=== PATIENT | female | born 1960 | race Caucasian/White ===

== ENCOUNTER 2017-08-26 19:51 | Emergency (ER) | payer BC ==
[2017-08-26] MEDS ORDERED: oxyCODONE/Acetamin 5/325 MG* TAB PO ONE (22:49)
[2017-08-26] MEDS ORDERED: Ofloxacin 0.3% OTIC.SOL* 5 ML BTL RIGHT EAR SCH (23:00)
[2017-08-27] MEDS ORDERED: Ciproflox/Dexameth OTIC.SUSP* 7.5 ML BTL ONE (03:00)
[2017-08-27 04:25] VITALS: BP 139/86
--- NOTE | 2017-08-27 05:56 | ED ---
Bobby Lopez Thomas, scribed for Dasha Calzada MD on 08/26/17 at 2330 . Throat Pain/Nasal Congestion - HPI Summary HPI Summary: The patient is a 57 year old female presenting with ear pain that has been persistent for the last two months. The pain is rated 8/10. The ear pain is now giving her a headache. She has not been taking any medication for the pain. She denies fever. There have been difficulties with her following up her family doctor and an ENT. - History of Current Complaint Chief Complaint: EDHeadache Time Seen by Provider: 08/26/17 22:29 Hx Obtained From: Patient Onset/Duration: Lasting Weeks - 2 months, Still Present Severity: Moderate Associated Signs And Symptoms: Positive: Negative - fever Cough: None Related History: Other (Noted In Comments) - Difficulty following up with ENT and family doc - Allergies/Home Medications Allergies/Adverse Reactions: Allergies Allergy/AdvReac Type Severity Reaction Status Date / Time carbamazepine [From Tegretol] Allergy Rash Verified 08/26/17 19:58 gabapentin [From Neurontin] Allergy See Comment Verified 08/26/17 19:58 lamotrigine [From Lamictal] Allergy Rash Verified 08/26/17 19:58 oxcarbazepine Allergy Rash Verified 08/26/17 19:58 [From Trileptal] PMH/Surg Hx/FS Hx/Imm Hx Cardiovascular History: Denies: Hx Pacemaker/ICD Sensory History: Denies: Hx Hearing Aid Neurological History: Reports: Other Neuro Impairments/Disorders - Hx epilepsy Psychiatric History: Denies: Hx Panic Disorder - Cancer History Hx Chemotherapy: No Hx Radiation Therapy: No - Surgical History Surgery Procedure, Year, and Place: 1989 VIDEO EEG OF BRAIN. 1992 RT CRANIOTOMY WITH TEMPORAL LOBECTOMY. 1984 TUBAL LIGATION Infectious Disease History: No Infectious Disease History: Denies: Traveled Outside the [place] in Last 30 Days - Family History Known Family History: Negative: Blood Disorder - Social History Alcohol Use: None Substance Use Type: Reports: None Smoking Status (MU): Former Smoker Review of Systems Negative: Fever Positive: Ear Ache Positive: Headache All Other Systems Reviewed And Are Negative: Yes Physical Exam - Summary Physical Exam Summary: VITAL SIGNS: Reviewed. GENERAL: Patient is a well-developed and nourished female who is lying comfortable in the stretcher. Patient is not in any acute respiratory distress. HEAD AND FACE: No signs of trauma. She is tender to her right mastoid. She has pain with right auricular movement. No ecchymosis, hematomas or skull depressions. No sinus tenderness. EYES: PERRLA, EOMI x 2, No injected conjunctiva, no nystagmus. EARS: She has right tragal tenderness. She has tenderness with right auricle movement. She has edema of the external auditory canal with tenderness. MOUTH: Oropharynx within normal limits. NECK: Supple, trachea is midline, no adenopathy, no JVD, no carotid bruit, no c- spine tenderness, neck with full ROM. CHEST: Symmetric, no tenderness at palpation LUNGS: Clear to auscultation bilaterally. No wheezing or crackles. CVS: Regular rate and rhythm, S1 and S2 present, no murmurs or gallops appreciated. ABDOMEN: Soft, non-tender. No signs of distention. No rebound no guarding, and no masses palpated. Bowel sounds are normal. EXTREMITIES: FROM in all major joints, no edema, no cyanosis or clubbing. NEURO: Alert and oriented x 3. No acute neurological deficits. Speech is normal and follows commands. SKIN: Dry and warm Triage Information Reviewed: Yes Vital Signs On Initial Exam: Initial Vitals Temp Pulse Resp BP Pulse Ox 97.8 F 99 16 128/84 98 08/26/17 19:53 08/26/17 19:53 08/26/17 19:53 08/26/17 19:53 08/26/17 19:53 Vital Signs Reviewed: Yes Procedures - Procedure Summary Procedure Summary: WICK INSERTION PROCEDURE NOTE: I inserted an air wick into the right external auditory canal. Diagnostics - Vital Signs Vital Signs Temp Pulse Resp BP Pulse Ox 08/26/17 23:04 16 08/26/17 19:53 97.8 F 99 16 128/84 98 - Laboratory Lab Statement: Any lab studies that have been ordered have been reviewed, and results considered in the medical decision making process. - CT CT Temporal Bones CT Interpretation: Positive (See Comments) - Impression: There is abnormal expansive soft tissue in the right external ear canal. It is eroding the bony margins of the right external ear. Uncertain if this is an inflammatory mass and disease (in which case malignant external otitis is possible) polyp or neoplasm. It obstructs the external ear canal and impresses on the tympanic membrane. The right middle and internal ear canals are normal. Right mastoid air cells are well aerated with no bone breakdown. There is also heterogeneous material in the left external ear canal but it is nonobstructing and not eroding bone at this point. Left middle and internal ear canals are normal the left mastoid air cells are well aerated. Patient status post right temporal craniotomy. Underlying right temporal encephalomalacia. Dr. Calzada has reviewed this report. CT Interpretation Completed By: Radiologist EENT Course/Dx - Course Assessment/Plan: The patient is a 57 year old female presenting with ear pain that has been persistent for the last two months. The patient was given Percocet and Ofloxacin. I inserted an air wick. A CT temporal bones shows There is abnormal expansive soft tissue in the right external ear canal. It is eroding the bony margins of the right external ear. Uncertain if this is an inflammatory mass and disease (in which case malignant external otitis is possible) polyp or neoplasm. It obstructs the external ear canal and impresses on the tympanic membrane. The right middle and internal ear canals are normal. Right mastoid air cells are well aerated with no bone breakdown. There is also heterogeneous material in the left external ear canal but it is nonobstructing and not eroding bone at this point. Left middle and internal ear canals are normal the left mastoid air cells are well aerated. Patient status post right temporal craniotomy. Underlying right temporal encephalomalacia. The patient could have a severe otitis externa versus malignant tumor within the external auditory canal. The patient was instructed to apply Cirpodex ear drops four drops to her right eye twice a day. She was strongly urged to call ENT tomorrow. 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 - Diagnoses Provider Diagnoses: Right otitis externa Discharge - Sign-Out/Discharge Documenting (check all that apply): Discharge - Discharge Plan Condition: Stable Disposition: HOME Prescriptions: oxyCODONE/Acetamin 5/325 MG* [Percocet 5/325 TAB*] 1 tab PO Q6H PRN #14 tab MDD 4 PRN Reason: Pain Patient Education Materials: Otitis Externa (ED) Referrals: Casey Velez MD [Medical Doctor] - As Soon As Possible Additional Instructions: I strongly urge you to call the office of Dr. Velez, ENT, in the morning to schedule an appointment as soon as possible. When you call the office, you need to tell the weekend receptionist that you were seen at the emergency department and that you need an appointment soon. Apply four drops of the provided Ciprodex drops to your right ear twice a day. Return to the emergency department for any new or worsening symptoms. The documentation as recorded by the Bobby sethi Thomas accurately reflects the service I personally performed and the decisions made by me, Dasha Calzada MD.
--- NOTE | 2017-08-27 08:04 | RAD ---
HISTORY: Right mastoiditis COMPARISONS: Head CT dated January 28, 2006 TECHNIQUE: Multiple contiguous axial CT scans of the temporal bones were obtained without intravenous contrast, with coronal and sagittal multiplanar reformations. FINDINGS: RIGHT: EXTERNAL CANAL: There is a soft tissue defect occupying the osseous portion of the right external canal to the level of the tympanic membrane. This measures approximately 1.5 x 1 x 1.3 cm in size. There is expansion and remodeling of the external canal, without appreciable erosion. TYMPANIC MEMBRANE: The tympanic membrane is not well visualized secondary to the mass of the external canal. OSSICLES: Normal. No erosion. WINDOWS: Normal. No narrowing. MIDDLE EAR: Normal. No abnormal soft tissue or fluid. The scutum is sharp. Prussak's space is clear. MASTOID: Normal. No fluid, sclerosis, or soft tissue abnormality. INNER EAR: Normal. FACIAL CANAL: Normal. No dehiscence. IAC: Normal. No expansion or asymmetry. JUGULAR FORAMEN: Normal. No expansion or erosion. CAROTID CANAL: Normal. No erosion LEFT: EXTERNAL CANAL: There is cerumen noted within the left external canal TYMPANIC MEMBRANE: Normal. No thickening or retraction. OSSICLES: Normal. No erosion. WINDOWS: Normal. No narrowing. MIDDLE EAR: Normal. No abnormal soft tissue or fluid. The scutum is sharp. Prussak's space is clear. MASTOID: Normal. No fluid, sclerosis, or soft tissue abnormality. INNER EAR: Normal. FACIAL CANAL: Normal. No dehiscence. IAC: Normal. No expansion or asymmetry. JUGULAR FORAMEN: Normal. No expansion or erosion. CAROTID CANAL: Normal. No erosion ADDITIONAL FINDINGS: The patient is status post right temporal craniotomy. There is right temporal encephalomalacia IMPRESSION: 1. THERE IS AN EXPANSILE SOFT TISSUE MASS OF THE RIGHT EXTERNAL CANAL, REMODELING THE EXTERNAL CANAL, WITHOUT APPRECIABLE EROSION, OF UNCERTAIN ETIOLOGY, THOUGH EXTERNAL CANAL NEOPLASM IS WITHIN THE DIFFERENTIAL. RECOMMEND CORRELATION WITH DIRECT VISUALIZATION AND CONSIDERATION OF TISSUE SAMPLING IF CLINICALLY INDICATED. 2. THERE IS CERUMEN NOTED WITHIN THE LEFT EXTERNAL CANAL. 3. THE MASTOID AIR CELLS ARE CLEAR BILATERALLY. 4. STATUS POST RIGHT TEMPORAL CRANIOTOMY WITH THE RIGHT TEMPORAL ENCEPHALOMALACIA
== END 2017-08-27 04:26 | disposition home or self-care (01) ==
LOC: ED 19:51
DX: H60.91 Unspecified otitis externa, right ear (principal); R51 Headache; G40.909 Epilepsy, unspecified, not intractable, without status epilepticus; Z88.8 Allergy status to other drugs, medicaments and biological substances; Z87.891 Personal history of nicotine dependence
CPT/HCPCS: 70480; 99282; A9270-GY

== ENCOUNTER → 2017-09-04 08:56 | Day surgery (SDC) | payer BC ==
[~2017-09-04 08:56] MED LIST: Acetaminophen TAB* 325 MG ONE; Buffered Lidocaine 0.9% SYRIN* 5 ML/SYR SYRINGE INTRADERM ONE; Buffered Lidocaine 0.9% SYRIN* 5 ML/SYR SYRINGE ONE; Ciprofloxacin 0.3% OPTH.SOL* 2.5 ML BTL ONE; Dexamethasone IV* 4 MG/ML 1 ML (4 MG) IV SLOW PU ONE; Dexamethasone IV* 4 MG/ML 1 ML (4 MG) ONE; Famotidine TAB* 20 MG ONE; Famotidine TAB* 20 MG PO ONE; Metoclopramide IV* 5 MG/ML 2 ML VIAL ONE; Midazolam* 1 MG/ML 2 ML VIAL (2 MG) ONE; Naloxone* 0.4 MG/ML 1 ML VIAL IV PRN; Ondansetron INJ* 2 MG/ML VIAL IV PRN; Propofol* 10 MG/ML 20 ML BTL IV PUSH ONE; fentaNYL* 50 MCG/ML 2 ML VIAL (100 MCG VIAL) ONE
[2017-09-04 13:38] VITALS: BP 128/69
--- NOTE | 2017-09-04 21:29 | OP ---
DATE OF OPERATION: 09/04/17 - [facility] DATE OF : 64 SURGEON: Roderick Juarez MD CRAFT ARTIST: None. ANESTHESIA: General. PRE-OP DIAGNOSIS: Keratosis obturans in the right ear and cerumen impaction on the left. 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 OPERATIVE PROCEDURE: Bilateral exam under anesthesia with debridement of the ears. ESTIMATED BLOOD LOSS: Negligible. FINDINGS: Squamous debris filling the right ear canal with expansion of the bony canal repair just consistent with keratosis obturans with intact tympanic membrane and left-sided ear canal with dense cerumen impaction. 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 It was clear that the patient had just accumulated debris in her right ear canal consistent with her prior known process of keratosis obturans. Ear canal was too painful and inflamed to adequately debride in the office. The patient was recommended to go to the operating room for debridement. She also had a dense left-sided wax impaction, the treatment of which was deferred until the OR. DESCRIPTION OF PROCEDURE: On 09/04/17, the patient was brought to the operating room. General anesthesia was induced. LMA was placed. Patient was draped and a time-out was performed. The left ear was addressed first. Cerumen was cleaned out of the left ear canal with a curette under microscope. The ear canal was not traumatized. The tympanic membrane was intact with clear middle ear space. On the right, the patient had inflammation of the lateral canal of skin with some granulation tissue and more medially the ear canal was filled with squamous debris consisting with keratosis obturans. This was removed under the microscope with a combination of suction and various alligator forceps. Once it was entirely removed, the tympanic membrane was inspected and found to be intact. Ofloxacin drops were placed. The patient was then extubated and delivered to the PACU in stable condition. [id number]/[facility] #: [id number] [facility]
== END | disposition home or self-care (01) ==
LOC: OR 08:56
PROVIDERS: ATTEND Otolaryngology
DX: H60.41 Cholesteatoma of right external ear (principal); H61.22 Impacted cerumen, left ear; G40.89 Other seizures; Z87.440 Personal history of urinary (tract) infections
CPT/HCPCS: A9270-GY; J1100; J2250; J2704; J2765; J3010

== ENCOUNTER 2019-04-18 13:54 | Emergency (ER) | payer BC ==
[2019-04-18 14:30] VITALS: BP 162/84
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
[2019-04-18] MEDS ORDERED: Acetaminophen TAB* 325 MG PO ONE (14:58)
== END 2019-04-18 15:50 | disposition home or self-care (01) ==
LOC: UCEAST 13:54
DX: M25.572 Pain in left ankle and joints of left foot (principal); R03.0 Elevated blood-pressure reading, without diagnosis of hypertension; S89.92XA Unspecified injury of left lower leg, initial encounter; S83.92XA Sprain of unspecified site of left knee, initial encounter; M85.89 Other specified disorders of bone density and structure, multiple sites; S93.402A Sprain of unspecified ligament of left ankle, initial encounter; Z88.8 Allergy status to other drugs, medicaments and biological substances; W18.31XA Fall on same level due to stepping on an object, initial encounter; Y93.H1 Activity, digging, shoveling and raking; Y92.9 Unspecified place or not applicable
CPT/HCPCS: 99213; A9270-GY; G0463